=== PATIENT | male | born 1990 | race African-American/Black ===

== ENCOUNTER 2017-05-25 04:17 | Emergency (ER) | payer SELFPAY ==
[~2017-05-25] VITALS: Ht 177.8 cm; Wt 79.4 kg
[2017-05-25 04:30] VITALS: BP 139/70
[2017-05-25] MEDS ORDERED: LIDOCAINE 1%/EPI 1:100,000 20 ML VIAL. INJ ONE (05:00)
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
== END 2017-05-25 06:33 | disposition home or self-care (01) ==
LOC: ER 04:17
DX: S01.01XA Laceration without foreign body of scalp, initial encounter (principal); S01.81XA Laceration without foreign body of other part of head, initial encounter; S01.21XA Laceration without foreign body of nose, initial encounter; S50.311A Abrasion of right elbow, initial encounter; W25.XXXA Contact with sharp glass, initial encounter; Y93.89 Activity, other specified; Y92.009 Unspecified place in unspecified non-institutional (private) residence as the place of occurrence of the external cause; Y99.8 Other external cause status
CPT/HCPCS: 12002; 99283; J3490

== ENCOUNTER 2017-06-04 19:13 | Emergency (ER) | payer SELFPAY ==
[~2017-06-04] VITALS: Ht 180.3 cm; Wt 71.7 kg
[2017-06-04 19:19] VITALS: BP 120/75
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
== END 2017-06-04 19:25 | disposition home or self-care (01) ==
LOC: ER 19:13
DX: S01.81XD Laceration without foreign body of other part of head, subsequent encounter (principal); X58.XXXD Exposure to other specified factors, subsequent encounter
CPT/HCPCS: 99281

== ENCOUNTER 2018-05-15 15:53 | Emergency (ER) | payer SELFPAY ==
[2018-05-15] MEDS: LIDOCAINE WITH 8.4% SOD BICARB 3 ML DISP.SYRIN. INJ (17:14)
[2018-05-15] MEDS: DIPHTH,PERTUSS(ACELL),TET TOX 0.5 ML DISP.SYRIN. VAX IM (17:15)
== END 2018-05-15 17:20 | disposition home or self-care (01) ==
LOC: ER 17:20
DX: S61.511A Laceration without foreign body of right wrist, initial encounter (principal); W25.XXXA Contact with sharp glass, initial encounter; Y93.89 Activity, other specified; Y92.89 Other specified places as the place of occurrence of the external cause; Y99.8 Other external cause status
CPT/HCPCS: 12002; 90471; 90715; 99283

== ENCOUNTER 2020-05-05 10:44 | Emergency (ER) | payer SELFPAY ==
[~2020-05-05] VITALS: Ht 180.3 cm; Wt 75.0 kg
[~2020-05-05 10:44] MED LIST: HYDR-3164 PO
[2020-05-05 11:03] VITALS: BP 132/82
== END 2020-05-05 13:03 | disposition left against medical advice (07) ==
LOC: ER 10:44
DX: H57.10 Ocular pain, unspecified eye (principal); Z53.21 Procedure and treatment not carried out due to patient leaving prior to being seen by health care provider